=== PATIENT | male | born 1980 | race Caucasian/White ===

== ENCOUNTER 2018-09-02 12:32 | Emergency (ER) | payer OTHER, BC ==
[2018-09-02 12:49] VITALS: BP 142/97
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
--- NOTE | 2018-09-02 15:49 | RADIOLOGY REPORT (SQ) ---
EXAM DESCRIPTION: CHEST 2 VIEWS COMPLETED DATE/TIME: 09/02/2018 3:41 pm REASON FOR STUDY: chest wall pain COMPARISON: None. EXAM PARAMETERS: NUMBER OF VIEWS: two views TECHNIQUE: Digital Frontal and Lateral radiographic views of the chest acquired. RADIATION DOSE: NA LIMITATIONS: none FINDINGS: LUNGS AND PLEURA: No opacities, masses or pneumothorax. No pleural effusion. MEDIASTINUM AND HILAR STRUCTURES: No masses or contour abnormalities. HEART AND VASCULAR STRUCTURES: Heart normal size. No evidence for failure. BONES: No acute findings. HARDWARE: None in the chest. OTHER: No other significant finding. IMPRESSION: No acute abnormality of the lungs. No radiographic abnormality of the chest wall. Plea se note that plain radiographs are insensitive for the evaluation of the sternum and the anterior suzanne st wall. TECHNICAL DOCUMENTATION: JOB ID: [id number] [employer]- All Rights Reserved Reading location - IP/workstation name: [email or web address]
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
--- NOTE | 2018-09-02 18:54 | EKG REPORT ---
SEVERITY:- NORMAL ECG - SINSU RHYTHM : Confirmed by: Jaren Rosales MD 02-Sep-2018 18:53:26
== END 2018-09-02 18:16 | disposition home or self-care (01) ==
LOC: ER 12:32
DX: S20.219A Contusion of unspecified front wall of thorax, initial encounter (principal); R06.00 Dyspnea, unspecified; R06.02 Shortness of breath; W20.8XXA Other cause of strike by thrown, projected or falling object, initial encounter; Y99.0 Civilian activity done for income or pay
CPT/HCPCS: 71046; 93005; 93010; 99283